=== PATIENT | female | born 1935 | race Caucasian/White ===

== ENCOUNTER → 2017-10-27 | Outpatient (CLI) | payer MEDICARE ==
[~2017-10-27] MED LIST: AMBIEN 10 MG TA10 MG PO; AUGMENTIN 875-1 EACH PO; BACTRIM DS TAB1 EACH PO; BRILINTA90 MG PO; CHANTIX1 MG; COLACE100 MG PO; FISHOIL; HYDROCODON-ACE1 EAC7 PO; HYDROCODONE-AP1 EAC6 PO; IMDUR 30 MG TAB30 M1 PO; JANUVIA25 MG; KLOR-CON 1010 MEQ PO; LASIX 80 MG TAB80 MG PO; LEVAQUIN 500 M500 M2 PO; LIPITOR40 MG PO; LISINOPRIL40 MG PO; LOPRESSOR 12.12.5 MG PO; LOW DOSE ASPIRI81 M1 PO; LUNESTA1 MG; LUNESTA1 MG PO; METFORMIN HCL500 MG PO; MIRALAX17 GM PO; NITROGLYCERIN0.4 MG SL; OMEGA-31000 MG PO; OMEPRAZOLE40 MG PO; PLAVIX 75 MG TA75 M1 PO; PLAVIX 75 MG TA75 MG PO; PRAVACHOL40 MG PO; PREDNISONE 10 M10 MG PO; PRINIVIL5 MG PO; PROAIR HFA8.5 GM INH; PYRIDIUM200 MG PO; SCOPOLAMINE1 EACH TRANSDERM; SYNTHROID112 MC1 PO; TESSALON PERLE100 MG; TYLENOL325 MG PO; VENTOLIN HFA 1818 GM INH; VITAMIN D31000 UNI2 PO
== END ==
LOC: M.RAD 09:21 → M.CT 11:00
DX: R91.1 Solitary pulmonary nodule (principal); J98.4 Other disorders of lung; K76.0 Fatty (change of) liver, not elsewhere classified; K57.30 Diverticulosis of large intestine without perforation or abscess without bleeding; M25.78 Osteophyte, vertebrae; M47.896 Other spondylosis, lumbar region; Z98.890 Other specified postprocedural states; Z90.710 Acquired absence of both cervix and uterus; Z90.722 Acquired absence of ovaries, bilateral

== ENCOUNTER → 2017-12-14 | Outpatient (CLI) | payer MEDICARE ==
[2017-12-14 08:44] LABS: CREATININE 0.9 mg/dL (0.6-1.3)
== END ==
LOC: M.CT 08:13 → M.LAB 08:30 → M.CT 09:30
PROVIDERS: Surgery
DX: I65.21 Occlusion and stenosis of right carotid artery (principal); G45.9 Transient cerebral ischemic attack, unspecified

== ENCOUNTER 2018-02-01 06:52 | Inpatient (IN) | payer MEDICARE ==
[~2018-02-01] VITALS: Ht 157.5 cm; Wt 79.4 kg
[~2018-02-01 06:52] MED LIST changes: -AUGMENTIN 875-1 EACH PO; -COLACE100 MG PO; -HYDROCODONE-AP1 EAC6 PO; -KLOR-CON 1010 MEQ PO; -LASIX 80 MG TAB80 MG PO; -LEVAQUIN 500 M500 M2 PO; -METFORMIN HCL500 MG PO; -PLAVIX 75 MG TA75 M1 PO; -PREDNISONE 10 M10 MG PO; -SCOPOLAMINE1 EACH TRANSDERM; -TYLENOL325 MG PO; -VENTOLIN HFA 1818 GM INH
[2018-02-01 11:34] LABS: ABSOLUTE BASOPHILS 0.1 thou/uL (0.0-0.2); ABSOLUTE EOSINOPHILS 0.2 thou/uL (0.0-0.7); ABSOLUTE LYMPHOCYTES 1.9 thou/uL (0.8-5.3); ABSOLUTE MONOCYTES 0.6 thou/uL (0.0-1.2); ABSOLUTE NEUTROPHILS 4.6 thou/uL (1.6-8.1); BASOPHILS 0.8 %; EOSINOPHILS 2.1 %; HEMATOCRIT 42.6 % (37.0-47.0); HEMOGLOBIN 14.4 gm/dL (12.0-15.0); LYMPHOCYTES 26.3 %; MCH 31.8 pg (26.0-34.0); MCHC 33.8 g/dL (28.0-37.0); MCV 94.2 fL (80.0-100.0); MONOCYTES 8.6 %; MPV 8.5 fl. (7.2-11.1); NUCLEATED RBCS 0 /100WBC; PLATELET COUNT* 202 thou/uL (150-400); POLYS 62.2 %; RBC 4.52 mil/uL (4.20-5.00); RDW-CV 13.1 % (10.5-14.5); WBC 7.3 thou/uL (4.0-11.0)
[2018-02-01 11:46] LABS: CALCIUM 8.5 mg/dL (8.5-10.1); CREATININE 0.7 mg/dL (0.6-1.3); POTASSIUM 4.7 mmol/L (3.5-5.1)
--- NOTE | 2018-02-01 15:53 | EKG ---
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
[2018-02-01 17:30] VITALS: BP 113/48
[2018-02-01 19:00] VITALS: BP 102/42
[2018-02-01 20:00] VITALS: BP 100/43
--- NOTE | 2018-02-01 20:48 | NUR ---
BP TRENDING DOWN, ARTERIAL MAPS 50-55. DR JARQUIN NOTIFIED, ORDERS RECEIVED. FLUID BOLUS INITIATED PER ORDER, TO START RANDA IF BOLUS IS INEFFECTIVE.
[2018-02-01 21:00] VITALS: BP 92/35
[2018-02-01 22:00] VITALS: BP 81/36
[2018-02-01 23:00] VITALS: BP 77/39
[2018-02-02] VITALS (7 sets, daily range): BP systolic 99–119; BP diastolic 35–51
[2018-02-02 05:30] LABS: ABSOLUTE BASOPHILS 0.1 thou/uL (0.0-0.2); ABSOLUTE EOSINOPHILS 0.1 thou/uL (0.0-0.7); ABSOLUTE LYMPHOCYTES 3.1 thou/uL (0.8-5.3); ABSOLUTE MONOCYTES 1.2 thou/uL (0.0-1.2); BASOPHILS 0.9 %; HEMATOCRIT 36.1 % (37.0-47.0); LYMPHOCYTES 24.4 %; MCH 32.1 pg (26.0-34.0); MCHC 33.7 g/dL (28.0-37.0); MCV 95.2 fL (80.0-100.0); MONOCYTES 9.9 %; MPV 8.7 fl. (7.2-11.1); NUCLEATED RBCS 0 /100WBC; PLATELET COUNT* 229 thou/uL (150-400); POLYS 63.8 %; RDW-CV 13.6 % (10.5-14.5); WBC 12.6 thou/uL (4.0-11.0)
[2018-02-02 05:32] LABS: HEMOGLOBIN 12.2 gm/dL (12.0-15.0)
[2018-02-02 05:49] LABS: CALCIUM 7.2 mg/dL (8.5-10.1); CREATININE 0.8 mg/dL (0.6-1.3); POTASSIUM 5.1 mmol/L (3.5-5.1)
--- NOTE | 2018-02-02 07:54 | NUR ---
PT STARTED ON NEOSYNEPHRINE GTT IN THE NIGHT DUE TO LOW BP INTRACTABLE TO FLUID BOLUS. PT WAS TITRATED OFF RANDA GTT AT 0550 AND HAS MAINTAINED MAP >65. PT HAS HAD MINIMAL URINE OUTPUT, BLADDER SCAN REVEALED 44ML POST VOID RESIDUAL. DR CUEVAS ON UNIT AND INFORMED, 1L NS BOLUS GIVEN ORDERED. RIGHT ARTERIAL LINE INTACT. PT HAS BEEN TURNED Q2HR THROUGHOUT THE SHIFT. CALL LIGHT WITHIN REACH.
--- NOTE | 2018-02-02 10:00 | NUR ---
ASSUMED PT CARE 0730. PT A/O X' S 4. C/O OF PAIN DURING SHIFT CHANGE. IV PRN FENTANYL ADMININSTERED BY NIGHT STAFF WITH RELIEF. ART LINE IN PLACE. MAP MAINTAINING > 65. SYSTOLIC BP >100. PT TOLERATING REGULAR DIET. WILL CONTINUE PLAN OF CARE.
--- NOTE | 2018-02-02 12:20 | NUR ---
MET WITH PT AND THEN AGAIN WITH HER FRIEND TO DISCUSS HOME SITUATION/DC PLANNING. PT LIVES WITH HER FRIEND. HAS SUPPORTIVE CHILDREN. 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 PT HAS ORDERS TO DC TODAY. DISCUSSED HH, SHE WOULD LIKE OT HAVE IT FOR SHORT TIME POST DC. DISCUSSED OPTIONS AND CHOSE [facility]. PT PLANS TO GO TO [facility] [place] [address] [place] [address]. CALLED AND FAXED ORDERS TO [facility].
[2018-02-02] MEDS ORDERED: TYLENOL325 MG PO (14:00)
[2018-02-02] MEDS ORDERED: SCOPOLAMINE1 EACH TRANSDERM (14:05)
[2018-02-02] MEDS ORDERED: HYDROCODONE-AP1 EAC6 PO (14:15)
--- NOTE | 2018-02-02 16:34 | NUR ---
PT CONTINUED TO MAINTAIN BP AND MAP. ART LINE DC'D. IV DC'D. DISCHARGE INSTRUCTIONS RECIEVED. PT EDUCATED ON S/S OF INFECTION. PT INSTRUCTED ON POST SURGERY INSTRUCTIONS. PT INSTRUCTED NOT TO DRIVE FOR 1 WEEK, LIFT NOTHING >10LS FOR ONE WEEK. PT EDUCATED ON F/U APPOINTMENTS. ALL BELONGINGS PACKED UP AND LEFT WITH PT. SPOUSE PRESENT DURING DISCHARGE INSTRUCTIONS.
--- NOTE | 2018-02-06 08:58 | OP ---
[facility] [address] [place] [address] OPERATIVE REPORT Name: TYRELL BRUSH Room: [address] IN [facility]#: [id number] Admission: 02/01/18 Attend Phys: Zoila Tomas Discharge: 02/02/18 Date of : 39 Report #: [id number] THIS REPORT FOR: //name// CC: Kelin Teixeira DATE OF SERVICE: 02/01/2018 PREOPERATIVE DIAGNOSIS: Asymptomatic high-grade left carotid artery stenosis. POSTOPERATIVE DIAGNOSIS: Asymptomatic high-grade left carotid artery stenosis. OPERATION: 1. Left carotid endarterectomy with bovine pericardial patch angioplasty. 2. Completion intraoperative duplex. SURGEON: Chavo Teixeira DO ZIPPER MEASURER: None. ANESTHESIA: General. ESTIMATED BLOOD LOSS: 100 mL. FLUIDS: A liter of crystalloid. URINE OUTPUT: None. SPECIMENS: Left carotid plaque. COMPLICATIONS: None. FINDINGS: The patient had about 90% heavily calcified left carotid bulb stenosis. This extended 2 cm up into the left internal carotid artery. This endarterectomized well. Completion duplex demonstrated no intraluminal defects. Good flow in the external carotid artery and continuous diastolic flow through the internal carotid artery. CLINICAL HISTORY: The patient is an 82-year-old woman who was incidentally found to have asymptomatic high-grade left carotid artery stenosis. She was brought in for elective carotid endarterectomy for stroke risk reduction. DETAILS OF PROCEDURE: After informed consent was obtained, the patient was taken to operating room and placed on the OR bed in supine position. She was administered general anesthesia by the anesthesia team. Left neck was prepped and draped in the usual sterile fashion. Full timeout was performed identifying [address] [address] OPERATIVE REPORT Name: GONSALOYAJAIRATYRELL A Room: [address] IN [facility]#: [id number] Admission: 02/01/18 Attend Phys: Zoila Tomas Discharge: 02/02/18 Date of : 39 Report #: [id number] correct patient and procedure. Next, a longitudinal incision was made along the anterior border of the sternocleidomastoid. Dissection was carried down through skin and subcutaneous tissues, both sharply and electrocautery. Platysma was divided. Fascial vein was identified. It was ligated between 2-0 silk ties and divided. The carotid sheath was entered. The jugular vein and vagus nerve were kept in the posterior lateral position. I circumferentially dissected out the left common carotid artery and controlled this with an umbilical tape and Rumel tourniquet. I then dissected out the left superior thyroid and external carotid artery and controlled these with Silastic vessel loops in Smith fashion. I then dissected out the distal internal carotid artery and controlled this with Silastic vessel loop. At this point, I administered 8000 units of intravenous heparin. This allowed to circulate for 3 minutes. I then sequentially clamped internal carotid followed by the external common carotid arteries. I made an arteriotomy and extended with Smith scissors on normal common and internal carotid arteries. I then placed a 12-Urdu Caret shunt in standard fashion. Doppler interrogation confirmed flow through the shunt. I then performed standard endarterectomy with eversion endarterectomy of the external carotid artery. I tailored a good distal endpoint in the internal carotid artery. I freed the artery of all intimal debris. Flushed with heparinized saline. Once satisfied with the endarterectomy, I then completed a patch angioplasty with bovine pericardial patch with running 6-0 Prolene suture. Prior to completion of the suture line, the shunt was removed and the carotid was performed, backbled and sequentially reclamped. I then flushed with heparinized saline, then completed the suture line and then restored flow first up the external carotid artery and after several heartbeats to the internal carotid artery. I then performed a completion intraoperative duplex. This demonstrated no intraluminal defects. Had good flow through the external carotid artery and continuous diastolic flow through the internal carotid artery. At this point, I then partially reversed the heparin with 50 mg of protamine. Once hemostasis was ensured, the wound was irrigated with antibiotic solution and closed the wound in layers with 2-0 and 3-0 Vicryl suture. A 0.25% Marcaine was then injected in the skin and subcutaneous tissues. Skin was closed with 4-0 Monocryl and Dermabond was applied. All sponge, sharp and instrument counts were reported as correct x 2. She tolerated the procedure well and was transferred to recovery room in stable condition, neurologically intact, moving all extremities appropriately. <ELECTRONICALLY SIGNED> By: Chavo Teixeira DO 02/06/18 0858 1627 1711Acaleb Teixeira DO /nt
== END 2018-02-02 16:30 | disposition home or self-care (01) | DRG 38 ==
LOC: M.PRE 06:52 → M.ICU 10:38 → M.TBA 10:38 → M.PRE 11:09 → M.ICU 17:30
PROVIDERS: Surgery; ADMIT Internal Medicine
PROC: 03UL0JZ Supplement Left Internal Carotid Artery with Synthetic Substitute, Open Approach (ICD-10-PCS; principal; 2018-02-01)
PROC: 03CL0ZZ Extirpation of Matter from Left Internal Carotid Artery, Open Approach (ICD-10-PCS; principal; 2018-02-01)
DX: I65.22 Occlusion and stenosis of left carotid artery (principal); R71.0 Precipitous drop in hematocrit; I73.9 Peripheral vascular disease, unspecified; I10 Essential (primary) hypertension; E03.9 Hypothyroidism, unspecified; Z96.1 Presence of intraocular lens; E78.5 Hyperlipidemia, unspecified; F17.210 Nicotine dependence, cigarettes, uncomplicated; K59.00 Constipation, unspecified; J30.9 Allergic rhinitis, unspecified; Z79.899 Other long term (current) drug therapy; Z79.82 Long term (current) use of aspirin; Z90.710 Acquired absence of both cervix and uterus; I25.2 Old myocardial infarction; Z98.61 Coronary angioplasty status

== ENCOUNTER 2018-02-03 19:08 | Inpatient (IN) | payer MEDICARE ==
[~2018-02-03] VITALS: Ht 157.5 cm; Wt 77.6 kg
[~2018-02-03 19:08] MED LIST changes: +HYDROCODONE-AP1 EAC6 PO; +SCOPOLAMINE1 EACH TRANSDERM; +TYLENOL325 MG PO
[2018-02-03 19:23] VITALS: BP 118/68
[2018-02-03 19:54] LABS: ABSOLUTE BASOPHILS 0.1 thou/uL (0.0-0.2); ABSOLUTE EOSINOPHILS 0.2 thou/uL (0.0-0.7); ABSOLUTE LYMPHOCYTES 1.7 thou/uL (0.8-5.3); ABSOLUTE MONOCYTES 0.9 thou/uL (0.0-1.2); ABSOLUTE NEUTROPHILS 5.2 thou/uL (1.6-8.1); BASOPHILS 1.2 %; EOSINOPHILS 2.1 %; HEMATOCRIT 33.3 % (37.0-47.0); HEMOGLOBIN 11.5 gm/dL (12.0-15.0); LYMPHOCYTES 21.3 %; MCH 32.8 pg (26.0-34.0); MCHC 34.4 g/dL (28.0-37.0); MCV 95.3 fL (80.0-100.0); MONOCYTES 10.9 %; MPV 8.7 fl. (7.2-11.1); NUCLEATED RBCS 0 /100WBC; POLYS 64.5 %; RDW-CV 13.6 % (10.5-14.5); WBC 8.1 thou/uL (4.0-11.0)
[2018-02-03 19:56] LABS: PLATELET COUNT* 144 thou/uL (150-400)
[2018-02-03 20:04] LABS: ANION GAP 9 mmol/L (7-16); BUN 13 mg/dL (7-18); CALCIUM 7.8 mg/dL (8.5-10.1); CHLORIDE 102 mmol/L (98-107); CO2 25 mmol/L (21-32); CREATININE 0.8 mg/dL (0.6-1.3); GLUCOSE 264 mg/dL (70-99); POTASSIUM 4.1 mmol/L (3.5-5.1); SODIUM 136 mmol/L (136-145)
[2018-02-03 20:07] LABS: APTT 30.8 Seconds (25.0-31.3)
[2018-02-03 20:14] LABS: ALKALINE PHOSPHATASE 73 U/L (46-116); LIPASE 51 U/L (73-393); MAGNESIUM 1.6 mg/dL (1.8-2.4); NT-PRO BRAIN NAT PEPTIDE 1072 pg/mL (<300); SGOT 19 U/L (15-37); SGPT 25 U/L (30-65); TOTAL BILIRUBIN 0.8 mg/dL (<0.1-1.0); TOTAL PROTEIN 6.4 g/dL (6.4-8.2); TROPONIN-I LEVEL <0.06 ng/mL (<0.06)
[2018-02-04] VITALS (8 sets, daily range): BP systolic 99–115; BP diastolic 43–76
--- NOTE | 2018-02-04 12:07 | EKG ---
[place] [address] ELECTROCARDIOGRAM REPORT Name: TYRELL BRUSH Room: [address] IN [facility]#: [id number] Admission: 02/03/18 Attend Phys: Alex Knutson, Discharge: Date of : 39 Report #: [id number] THIS REPORT FOR: //name// 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 : 1935 Requested By: Stephan Douglas Order Number: [id number] MD: Yuval Tucker Measurements Intervals [place] Rate: 65 P: 33 SC: 135 QRS: 31 QRSD: 76 T: 16 QT: 400 QTc: 416 Interpretive Statements Sinus rhythm Atrial premature complex Borderline T abnormalities, anterior leads Compared to ECG 02/01/2018 11:23:00 Atrial premature complex(es) now present T-wave abnormality now present Electronically Signed On 02-04-2018 12:07:44 CDT by Yuval Tucker [email or web address] <ELECTRONICALLY SIGNED> By: Micky Tucker MD, [facility] 02/04/18 1207 41 41 Micky Tucker MD, [facility] /EPI
[2018-02-05 04:18] VITALS: BP 103/41
[2018-02-05 08:00] VITALS: BP 97/48
[2018-02-05 12:00] VITALS: BP 99/56
--- NOTE | 2018-02-05 13:12 | CON ---
[address] [address] CONSULTATION Name: TYRELL BRUSH Room: [address] IN [facility].#: [id number] Admission: 02/03/18 Attend Phys: Alex Knutson, Discharge: Date of : 39 Report #: [id number] THIS REPORT FOR: //name// CC: KARIE physician/PCP Alex Knutson REQUESTING PHYSICIAN: Dr. Knutson. REASON FOR CONSULTATION: Possible pulmonary embolism. DISCUSSION: The patient is a pleasant 82-year-old woman who has a history of underlying obstructive lung disease, coronary artery disease, peripheral vascular disease. She underwent a left-sided carotid endarterectomy last week on 02/01/2018. She was discharged on 02/02. She presented to the Emergency Department, however, on the evening of 02/03/2018 with complaints of midsternal chest pain and tightness. She has also had intermittent hemoptysis. She was evaluated in the ED. D-dimer was elevated. Chest x-ray was unremarkable. Initial plans were to get a CT angiogram of her chest. However, she could not lay flat. Ventilation perfusion lung scan was done which did show a wedge-shaped defect left upper lobe posteriorly. Ventilation was normal. This was interpreted by the radiologist to be suspicious for PE, but overall was indeterminate probability. She has been kept on IV Lovenox. We were asked to see her. History of COPD is noted. Her last cigarette was last prior to coming in for her carotid endarterectomy. She has a nebulizer at home, and she uses that just p.r.n., maybe, every couple of weeks. She is not on any other inhalers. No oxygen at home. She has smoked up to 2 packs of cigarettes per day in the past, but prior to last week had cut down to at least just a half a pack per day. She has not had hemoptysis previously. She was feeling fairly short of breath, was unable to lie flat. This was a change for her. Not aware of any fevers at home. She is feeling better today. PAST MEDICAL HISTORY: Remarkable for peripheral vascular disease, cerebrovascular disease. The carotid endarterectomy repaired last week. She has coronary artery disease, had had stents placed in the past, with the last one in 2016. She has had prior hysterectomy, left shoulder surgery, diabetes mellitus type 2, hypothyroidism. HOME MEDICATIONS: At the time of admission were levothyroxine, baby aspirin, p.r.n. nitroglycerin, lisinopril, Plavix, pravastatin, MiraLax, scopolamine patch p.r.n. nausea, p.r.n. hydrocodone. ALLERGIES: [place] [address] CONSULTATION Name: TYRELL BRUSH Room: [address] IN [facility]#: [id number] Admission: 02/03/18 Attend Phys: Alex Knutson, Discharge: Date of : 39 Report #: [id number] SOCIAL HISTORY: She is retired. Smoking history as noted above. FAMILY HISTORY: Negative for thromboembolic disease. Negative for heart disease. REVIEW OF SYSTEMS: A 12-point ROS was done. Note positives as above. She has been wheezing more as well. She is not aware of any fevers. Denies any difficulty swallowing. Has had some of the fullness in her neck, but no difficulty swallowing. No vomiting, no diarrhea. Chest pain has resolved. Overall, her breathing is better, but still not back to its baseline. PHYSICAL EXAMINATION: GENERAL APPEARANCE: The patient is a woman who looks her stated age. Currently on room air. She is alert, cooperative. She is in no acute distress. She had no cough or sputum expectorated during my visit. HEENT: Head is normocephalic. Sclerae nonicteric. Mucous membranes are moist. She has a healing left carotid endarterectomy scar on left side. No supraclavicular adenopathy. HEART: Regular rate. No murmur or gallop is appreciated. LUNGS: Reveal breath sounds to be diminished with a prolonged expiratory phase. Does have diffuse scattered expiratory wheezes heard. No crackles or rhonchi heard. Excursion is equal. No CVA tenderness. ABDOMEN: Obese but soft, without appreciable hepatosplenomegaly. There is no guarding or rebound tenderness noted. EXTREMITIES: She has no clubbing. Lower extremities are negative for any significant edema. Turgor is fair. SKIN: Warm and dry. NEUROLOGIC: She is alert and oriented x 3. LABORATORY AND X-RAY FINDING: Chest x-ray and her V/Q scan were reviewed. Findings noted above. She had venous Dopplers done of her lower extremities negative for DVT. Chemistry: BUN is 13, creatinine 0.8, potassium 4.1. ProBNP on admission was almost 1100. Albumin 3.3. Transaminases unremarkable. D-dimer was 1.59. Coag studies otherwise unremarkable. White blood cell count 8100, hemoglobin 11.5, hematocrit of 33.3, platelets 144,000. IMPRESSION: 1. Abnormal V/Q scan. Findings are certainly worrisome for a pulmonary embolism despite having negative venous Dopplers. Given the fairly sudden onset of her symptoms at home as well as the nonmassive hemoptysis, pulmonary embolism does definitely need to be ruled out. 2. Chronic obstructive pulmonary disease, severity unknown. 3. Non-massive hemoptysis. 4. Cerebrovascular disease, status post left carotid endarterectomy. 5. Coronary artery disease, status post stent placement on several occasions. 6. History of hypertension. [address] [address] CONSULTATION Name: TYRELL BRUSH Room: [address] IN [facility].#: [id number] Admission: 02/03/18 Attend Phys: Alex Knutson, Discharge: Date of : 39 Report #: [id number] 7. Obesity. 8. History of tobacco abuse. Last cigarette on 02/01/2018. RECOMMENDATIONS: 1. We will follow up with a CT angiogram of her chest. Discussed with the patient. She does feel like she can lie flat now. This will also allow us to not only assess for presence of PE, but also review her lung godinez. With her smoking history, I do wish to ensure she does not have any worrisome masses. 2. We will continue her neb treatments here on a regular basis. 3. Continue on high dose Lovenox until CT angiogram results are available. 4. Long-term smoking cessation is certainly imperative. <ELECTRONICALLY SIGNED> By: Cadence Cruz MD 02/05/18 1312 1010 [id number] Cruz MD /kenan
[2018-02-05 16:00] VITALS: BP 97/52
[2018-02-05 16:29] LABS: ABSOLUTE EOSINOPHILS 0.2 thou/uL (0.0-0.7); ABSOLUTE LYMPHOCYTES 1.3 thou/uL (0.8-5.3); ABSOLUTE MONOCYTES 0.6 thou/uL (0.0-1.2); ABSOLUTE NEUTROPHILS 4.4 thou/uL (1.6-8.1); BASOPHILS 0.7 %; EOSINOPHILS 2.5 %; HEMATOCRIT 33.3 % (37.0-47.0); HEMOGLOBIN 11.3 gm/dL (12.0-15.0); LYMPHOCYTES 19.7 %; MCH 32.6 pg (26.0-34.0); MCV 95.9 fL (80.0-100.0); MONOCYTES 8.9 %; MPV 8.8 fl. (7.2-11.1); NUCLEATED RBCS 0 /100WBC; PLATELET COUNT* 175 thou/uL (150-400); POLYS 68.2 %; RBC 3.47 mil/uL (4.20-5.00); RDW-CV 13.3 % (10.5-14.5); WBC 6.4 thou/uL (4.0-11.0)
[2018-02-05 16:34] LABS: CALCIUM 8.6 mg/dL (8.5-10.1); CREATININE 0.9 mg/dL (0.6-1.3); POTASSIUM 3.9 mmol/L (3.5-5.1)
[2018-02-05 16:45] LABS: ALBUMIN 2.9 g/dL (3.4-5.0); TOTAL BILIRUBIN 0.8 mg/dL (<0.1-1.0); TOTAL PROTEIN 6.7 g/dL (6.4-8.2)
[2018-02-05 20:00] VITALS: BP 121/59
[2018-02-05 23:25] VITALS: BP 128/63
[2018-02-06 04:28] VITALS: BP 99/46
[2018-02-06 04:56] LABS: HEMATOCRIT 33.8 % (37.0-47.0); HEMOGLOBIN 11.7 gm/dL (12.0-15.0); MCH 32.6 pg (26.0-34.0); MCHC 34.5 g/dL (28.0-37.0); MCV 94.5 fL (80.0-100.0); MPV 9.1 fl. (7.2-11.1); NUCLEATED RBCS 0 /100WBC; PLATELET COUNT* 196 thou/uL (150-400); RBC 3.58 mil/uL (4.20-5.00); RDW-CV 13.4 % (10.5-14.5); WBC 7.3 thou/uL (4.0-11.0)
[2018-02-06 05:09] LABS: CALCIUM 8.8 mg/dL (8.5-10.1); CREATININE 1.2 mg/dL (0.6-1.3); POTASSIUM 4.4 mmol/L (3.5-5.1); TOTAL BILIRUBIN 0.8 mg/dL (<0.1-1.0); TOTAL PROTEIN 6.8 g/dL (6.4-8.2)
[2018-02-06 06:02] LABS: ABSOLUTE LYMPHOCYTES 0.6 thou/uL (0.8-5.3); ABSOLUTE MONOCYTES 0.1 thou/uL (0.0-1.2); ABSOLUTE NEUTROPHILS 6.6 thou/uL (1.6-8.1); PLATELET ESTIMATE ADEQUATE
[2018-02-06 06:03] LABS: ANISOCYTOSIS 1+; POIKILOCYTOSIS 1+
[2018-02-06 07:06] LABS: GLYCOHEMOGLOBIN (HGB A1C) 9.9 % (4.8-5.6)
[2018-02-06 08:26] VITALS: BP 109/49
[2018-02-06 11:30] VITALS: BP 95/43
[2018-02-06 15:26] VITALS: BP 92/37
--- NOTE | 2018-02-06 17:07 | 2DMMODE ---
[place] [address] 2 D/M-MODE ECHOCARDIOGRAM Name: TYRELL BRUSH Room: [address] IN [facility]#: [id number] Admission: 02/03/18 Attend Phys: Alex Sequeira Discharge: Date of : 39 Date of Service: 02/06/18 1707 Report #: [id number] THIS REPORT FOR: //name// APPROVED REPORT Study performed: 02/06/2018 14:33:34 EXAM: Comprehensive 2D, Doppler, and color-flow Echocardiogram Patient Location: In-Patient Room #: [facility] Status: routine BSA: 1.79 HR: 80 bpm BP: 95/43 mmHg Rhythm: NSR Other Information Study Quality: Good Indications Congestive Heart Failure 2D Dimensions LVEF(%): 75.22 (>50%) IVSd: 10.99 (7-11mm) LVOT Diam: 18.73 (18-24mm) LVDd: 41.67 mm PWd: 10.02 (7-11mm) Ascending Ao: 35.43 (22-36mm) LVDs: 23.49 (25-40mm) Aortic Root: 31.71 mm Roach's LVEF: 75.22 % Volumes Left Atrial Volume (Systole) LA ESV Index: 24.40 mL/m2 Aortic Valve AoV Peak Larry.: 1.46 m/s AO Peak Gr.: 8.53 mmHg LVOT Max P.45 mmHg AO Mean Gr.: 4.52 mmHg LVOT Mean P.75 mmHg LVOT Max V: 0.93 m/s AO V2 VTI: 31.65 cm LVOT Mean V: 0.61 m/s EVETTE (VTI): 1.89 cm2 LVOT V1 VTI: 21.65 cm Mitral Valve E/A Ratio: 1.14 [place] [address] 2 D/M-MODE ECHOCARDIOGRAM Name: TYRELL BRUSH Room: [address] IN [facility]#: [id number] Admission: 02/03/18 Attend Phys: Alex Sequeira Discharge: Date of : 39 Date of Service: 02/06/18 1707 Report #: [id number] MV Decel. Time: 169.53 ms MV E Max Larry.: 1.17 m/s MV PHT: 49.16 ms MVA (PHT): 4.47 cm2 TDI E/Lateral E': 10.64 E/Medial E': 10.64 Medial E' Larry.: 0.11 m/s Lateral E' Larry.: 0.11 m/s Pulmonary Valve PV Peak Larry.: 1.02 m/s PV Peak Gr.: 4.19 mmHg Tricuspid Valve TR Peak Gr.: 25.23 mmHg RVSP: 30.00 mmHg Left Ventricle The left ventricle is normal size. There is normal LV segmental wall motion. There is normal left ventricular wall thickness. Left ventricular systolic function is normal. The left ventricular ejection fraction is within the normal range. LVEF is 60-65%. The left ventricular diastolic function is normal. Right Ventricle The right ventricle is normal size. The right ventricular systolic function is normal. Atria The left atrium size is normal. The right atrium size is normal. Aortic Valve Mild aortic valve sclerosis. No aortic regurgitation is present. No hemodynamically significant valvular aortic stenosis. Mitral Valve The mitral valve is normal in structure. Trace mitral regurgitation. No evidence of mitral valve stenosis. Tricuspid Valve The tricuspid valve is normal in structure. Trace to mild tricuspid regurgitation. The RVSP is 30-35 mmHg. Pulmonic Valve The pulmonary valve is normal in structure. [place] [address] 2 D/M-MODE ECHOCARDIOGRAM Name: TYRELL BRUSH Room: [address]#: [id number] Admission: 02/03/18 Attend Phys: Alex Sequeira Discharge: Date of : 39 Date of Service: 02/06/18 1707 Report #: [id number] Great Vessels The aortic root is normal in size. IVC is normal in size and collapses with >50% inspiration Pericardium There is no pericardial effusion. <Conclusion> The left ventricle is normal size. There is normal left ventricular wall thickness. Left ventricular systolic function is normal. The left ventricular ejection fraction is within the normal range. LVEF is 60-65%. The left ventricular diastolic function is normal. The right ventricle is normal size. The left atrium size is normal. Mild aortic valve sclerosis. No aortic regurgitation is present. No hemodynamically significant valvular aortic stenosis. The mitral valve is normal in structure. Trace mitral regurgitation. The tricuspid valve is normal in structure. Trace to mild tricuspid regurgitation. The RVSP is 30-35 mmHg. IVC is normal in size and collapses with >50% inspiration There is no pericardial effusion. There is normal LV segmental wall motion. <ELECTRONICALLY SIGNED> By: Jerrell Montalvo MD, FACC 02/06/18 170 06 06 Jerrell Montalvo MD, FACC /INF
[2018-02-06 20:10] VITALS: BP 109/42
[2018-02-07] VITALS: BP 96/48
[2018-02-07 04:00] VITALS: BP 103/41
[2018-02-07 05:43] LABS: ALBUMIN 3.1 g/dL (3.4-5.0); CALCIUM 8.7 mg/dL (8.5-10.1); CREATININE 1.1 mg/dL (0.6-1.3); POTASSIUM 4.3 mmol/L (3.5-5.1); TOTAL BILIRUBIN 0.5 mg/dL (<0.1-1.0); TOTAL PROTEIN 6.7 g/dL (6.4-8.2)
[2018-02-07 05:52] LABS: ABSOLUTE LYMPHOCYTES 1.1 thou/uL (0.8-5.3); ABSOLUTE MONOCYTES 0.9 thou/uL (0.0-1.2); ABSOLUTE NEUTROPHILS 9.9 thou/uL (1.6-8.1); BASOPHILS 0.1 %; HEMATOCRIT 32.8 % (37.0-47.0); LYMPHOCYTES 9.3 %; MCH 32.1 pg (26.0-34.0); MCHC 33.4 g/dL (28.0-37.0); MONOCYTES 7.3 %; MPV 9.3 fl. (7.2-11.1); NUCLEATED RBCS 0 /100WBC; PLATELET COUNT* 194 thou/uL (150-400); POLYS 83.3 %; RBC 3.41 mil/uL (4.20-5.00); RDW-CV 13.8 % (10.5-14.5); WBC 11.9 thou/uL (4.0-11.0)
[2018-02-07 07:54] VITALS: BP 121/56
[2018-02-07] MEDS ORDERED: AUGMENTIN 875-1 EACH PO (09:19)
[2018-02-07] MEDS ORDERED: VENTOLIN HFA 1818 GM INH (09:19)
[2018-02-07] MEDS ORDERED: PREDNISONE 10 M10 MG PO (09:20)
[2018-02-07] MEDS ORDERED: METFORMIN HCL500 MG PO (09:21)
[2018-02-07 11:00] VITALS: BP 111/45
[2018-02-07 11:16] VITALS: BP 111/45
[2018-02-07 11:43] VITALS: BP 111/45
== END 2018-02-07 12:45 | disposition home health service (06) | DRG 291 ==
LOC: M.ERS 19:08 → M.TBA-ER 22:05 → M.2W 22:05
PROVIDERS: Emergency Medicine Emergency Medical Services; Internal Medicine; ADMIT Family Medicine
DX: I11.0 Hypertensive heart disease with heart failure (principal); J96.01 Acute respiratory failure with hypoxia; J44.0 Chronic obstructive pulmonary disease with (acute) lower respiratory infection; I50.33 Acute on chronic diastolic (congestive) heart failure; E11.51 Type 2 diabetes mellitus with diabetic peripheral angiopathy without gangrene; E11.65 Type 2 diabetes mellitus with hyperglycemia; E03.9 Hypothyroidism, unspecified; J20.9 Acute bronchitis, unspecified; I25.10 Atherosclerotic heart disease of native coronary artery without angina pectoris; I73.9 Peripheral vascular disease, unspecified; E78.5 Hyperlipidemia, unspecified; F17.210 Nicotine dependence, cigarettes, uncomplicated; E66.9 Obesity, unspecified; Z68.31 Body mass index [BMI] 31.0-31.9, adult; I25.2 Old myocardial infarction; Z95.5 Presence of coronary angioplasty implant and graft; Z90.710 Acquired absence of both cervix and uterus; Z79.02 Long term (current) use of antithrombotics/antiplatelets; Z79.82 Long term (current) use of aspirin; Z79.899 Other long term (current) drug therapy

== ENCOUNTER 2018-02-08 04:19 | Inpatient (IN) | payer MEDICARE ==
[~2018-02-08] VITALS: Ht 157.5 cm; Wt 72.8 kg
[~2018-02-08 04:19] MED LIST changes: +AUGMENTIN 875-1 EACH PO; +METFORMIN HCL500 MG PO; +PREDNISONE 10 M10 MG PO; +VENTOLIN HFA 1818 GM INH
[2018-02-08 04:24] VITALS: BP 156/88
[2018-02-08 04:56] LABS: URINE BILIRUBIN NEGATIVE (Negative); URINE BLOOD NEGATIVE (Negative); URINE CLARITY CLEAR; URINE COLOR YELLOW; URINE GLUCOSE-RANDOM NEGATIVE (Negative); URINE KETONES NEGATIVE (Negative); URINE LEUKOCYTES-REFLEX NEGATIVE (Negative); URINE NITRITE-REFLEX NEGATIVE (Negative); URINE PROTEIN NEGATIVE (Negative); URINE SPECIFIC GRAVITY 1.015 (1.005-1.030)
[2018-02-08 05:17] LABS: HEMATOCRIT 34.4 % (37.0-47.0); HEMOGLOBIN 11.8 gm/dL (12.0-15.0); MCH 32.3 pg (26.0-34.0); MCHC 34.4 g/dL (28.0-37.0); MCV 94.1 fL (80.0-100.0); MPV 8.8 fl. (7.2-11.1); NUCLEATED RBCS 0 /100WBC; PLATELET COUNT* 213 thou/uL (150-400); RBC 3.66 mil/uL (4.20-5.00); RDW-CV 13.7 % (10.5-14.5); WBC 8.9 thou/uL (4.0-11.0)
[2018-02-08 05:22] LABS: CALCIUM 8.4 mg/dL (8.5-10.1); CREATININE 0.9 mg/dL (0.6-1.3); POTASSIUM 3.9 mmol/L (3.5-5.1)
[2018-02-08 05:27] LABS: ALBUMIN 3.2 g/dL (3.4-5.0); MAGNESIUM 1.7 mg/dL (1.8-2.4); TOTAL BILIRUBIN 0.6 mg/dL (<0.1-1.0); TOTAL PROTEIN 6.6 g/dL (6.4-8.2)
[2018-02-08 05:36] LABS: BE 1.5 mmol/L (-2 to +3); HCO3 24.2 mmol/L (22.0-26.0); PCO2 32.3 mmHg (35.0-45.0); PO2 74.7 mmHg (75.0-100.0); pH 7.493 (7.340-7.450)
[2018-02-08 05:44] LABS: ABSOLUTE EOSINOPHILS 0.4 thou/uL (0.0-0.7); ABSOLUTE MONOCYTES 0.6 thou/uL (0.0-1.2); ANISOCYTOSIS 1+; PLATELET ESTIMATE ADEQUATE; POIKILOCYTOSIS 1+
[2018-02-08 06:58] LABS: PROTIME 9.7 Seconds (9.20-11.50)
[2018-02-08 07:06] LABS: NT-PRO BRAIN NAT PEPTIDE 1049 pg/mL (<300); TROPONIN-I LEVEL <0.06 ng/mL (<0.06)
--- NOTE | 2018-02-08 08:00 | NUR ---
DAUGHTER-BERNA HAS VOICED CONCERNS THAT HER MOTHER IS TOO SICK TO RETURN HOME AND NEEDS TO BE ADMITTED STATING SHE WANTS TO SPEAK WITH DR MILLER BEFORE ANY DECISION IS MADE. DR MILLER NOTIFIED OF SUCH.
--- NOTE | 2018-02-08 08:38 | NUR ---
DAUGHTER NOW REQUESTING THAT CARDIOLOGY BE CONSULTED SHE WANTS HER MOTHER TO BE EVALUATED DUE TO CHF. DR MILLER NOTIFIED.
[2018-02-08 09:48] VITALS: BP 138/63
[2018-02-08 10:00] VITALS: BP 139/70
--- NOTE | 2018-02-08 10:54 | NUR ---
RECIEVED REPORT FROM STEPHANIE IN ED AND ASSUMED CARE OF PT @ 1000.PT IS A/O X4,VSS,TRACING SR ON MONITOR.LUNG SOUNDS ARE COARSE DIMINSHED WITH WHEEZES.LAST BM WAS YESTERDAY.IV RIGHT HAND PATENT AND SALINE LOCKED.IV LEFT FOREARM PATENT AND SALINE LOCKED.PT IS CALM AND COOPERATIVE WITH NO C/O PAIN AT TIME OF ASSESSMENT.PT IS UP WITH ONE ASSIST TO THE BATHROOM.PT LEFT RESTING N BED WITH CALL LIGHT AND FALL PRECAUTIONS IN PLACE.FAMILY AT BEDSIDE.WILL CONTINUE TO MONITOR.
--- NOTE | 2018-02-08 11:52 | EKG ---
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 Logan : 1935 Requested By: Mouna Cooper Order Number: [id number] MD: Jean Carlos Brooke Measurements Intervals [place] Rate: 60 P: 53 PA: 131 QRS: 19 QRSD: 84 T: 32 QT: 418 QTc: 418 Interpretive Statements Sinus rhythm Compared to ECG 02/03/2018 19:42:36 Atrial premature complex(es) no longer present T-wave abnormality no longer present Electronically Signed On 02-08-2018 11:52:12 CDT by Jean Carlos Brooke [email or web address] <ELECTRONICALLY SIGNED> By: Jean Carlos Brooke MD, FACC 02/08/18 1152 0452 0452 Jean Carlos Brooke MD, [facility] /EPI
[2018-02-08 16:00] VITALS: BP 120/70
--- NOTE | 2018-02-08 16:09 | 2DMMODE ---
[place] [address] 2 D/M-MODE ECHOCARDIOGRAM Name: TYRELL BRUSH Room: [address] IN [facility]#: [id number] Admission: 02/08/18 Attend Phys: Yvette Bojorquez, Discharge: Date of : 39 Date of Service: 02/08/18 1609 Report #: [id number] THIS REPORT FOR: //name// APPROVED REPORT Study performed: 02/08/2018 13:49:48 EXAM: Limited 2D Echocardiogram Patient Location: In-Patient Room #: 210 Status: routine BSA: 1.76 HR: 78 bpm BP: 139/70 mmHg Rhythm: NSR Indications Congestive Heart Failure COPD Tricuspid Valve TR Peak Gr.: 28.66 mmHg Left Ventricle The left ventricle is normal size. There is normal LV segmental wall motion. There is normal left ventricular wall thickness. The left ventricular systolic function is normal. The left ventricular ejection fraction is within the normal range. LVEF is 60-65%. Right Ventricle The right ventricle is normal size. The right ventricular systolic function is normal. Atria The left atrium size is normal. The right atrium size is normal. Aortic Valve Mild aortic valve sclerosis. No aortic regurgitation is present. There is no aortic valvular stenosis. Mitral Valve The mitral valve is normal in structure. Trace mitral regurgitation. No evidence of mitral valve stenosis[place] [address] 2 D/M-MODE ECHOCARDIOGRAM Name: BRUSHTYRELL Room: [address] IN .R.#: [id number] Admission: 02/08/18 Attend Phys: Yvette Bojorquez, Discharge: Date of : 39 Date of Service: 02/08/18 1609 Report #: [id number] The tricuspid valve is normal in structure. Trace tricuspid regurgitation. Great Vessels The aortic root is normal in size. Pericardium There is no pericardial effusion. <Conclusion> LVEF is 60-65%. There is normal LV segmental wall motion. Mild aortic valve sclerosis. There is no aortic valvular stenosis. No aortic regurgitation is present. Trace mitral regurgitation. <ELECTRONICALLY SIGNED> By: Jean Carlos Brooke MD, FACC 02/08/181608 08 08 Jean Carlos Brooke MD, FACC /INF
--- NOTE | 2018-02-08 18:29 | NUR ---
VSS,CARDIAC MONITORING IN PLACE WITH NO CHANGES THIS SHIFT.PT REMAINS ON 2L O2 NC FOR COMFORT.PT PROGRESSING TOWARDS GOALS.RECIEVED MULTIPLE BREATHING TREATMENTS.DENIED PAIN DURING SHIFT.IVS PATENT AND SALINE LOCKED.IV ANTIBIOTICS MANAGED WELL. PT INFORMED OF PLAN OF CARE AND COMMUNICATES UNDERSTANDING.PT UP AD HILDA IN ROOM.HOURLY ROUNDING COMPLETED FOR PT SAFETY.CALL LIGHT WITHIN REACH.WILL CONTINUE TO MONITOR FOR DURATION OF SHIFT.
[2018-02-08 20:00] VITALS: BP 135/69
[2018-02-09] VITALS: BP 107/56
[2018-02-09 00:49] LABS: HEMATOCRIT 37.9 % (37.0-47.0); HEMOGLOBIN 12.7 gm/dL (12.0-15.0); MCH 31.6 pg (26.0-34.0); MCHC 33.5 g/dL (28.0-37.0); MCV 94.3 fL (80.0-100.0); MPV 8.4 fl. (7.2-11.1); RBC 4.02 mil/uL (4.20-5.00); RDW-CV 13.7 % (10.5-14.5); WBC 13.9 thou/uL (4.0-11.0)
[2018-02-09 01:00] LABS: CREATININE 1.3 mg/dL (0.6-1.3); MAGNESIUM 1.7 mg/dL (1.8-2.4); POTASSIUM 3.8 mmol/L (3.5-5.1)
[2018-02-09 04:18] VITALS: BP 107/50
--- NOTE | 2018-02-09 04:38 | NUR ---
PATIENT RESTED IN BED, NO ACUTE CHANGES, PATIENT DID NOT SHOW SIGNS OF DISTRESS. PATIENT BLOOD SUGAR WAS 388 AT TOP OF SHIFT, DOCTOR NOTIFIED, NO NEW ORDERS. BLOOD SUGAR IS WITHIN 160'S. PATIENT DID NOT COMPLAIN OF SOB. FALL PRECAUTIONS IN PLACE, HOURLY ROUNDING OBSERVED.
[2018-02-09 08:00] VITALS: BP 119/60
--- NOTE | 2018-02-09 10:49 | NUR ---
Pt is A&O. Resides at home with a friend. Recently dc from this hospital on 02/07 with [facility], readmitted yesterday for Heart failure, COPD ex. Pt is normally independent. No DME. No hx of SNF. Supportive family and friends. Pt's goal is to return home at dc, resume [facility] HH. Following.
[2018-02-09 12:00] VITALS: BP 119/58
--- NOTE | 2018-02-09 14:22 | NUR ---
O.T. EVAL RECIEVED AND CHART REVIEWED. PT. IS UP AD HILDA IN HER ROOM. PT. DENIES ANY O.T. NEEDS AND HAS BEEN INDEPENDENTLY COMPLETING ADLS IN HER ROOM. O.T. SERVICES ARE NOT INDICATED AT THIS TIME.
[2018-02-09 17:07] VITALS: BP 116/51
--- NOTE | 2018-02-09 19:40 | NUR ---
PATIENT SITTING UP IN BED AND WATCHING TV REMAINS A AND O X 4 NSR RA O2 SAT MID 90S DESILVERIZER COUGH GOOD APPETITE LAST BM T-3 UP AD HILDA IV 20 GA R H SL NO C/O PAIN TODAY ACCUCHECKS 344/388/277 CALL LIGHT IN REACH AND INSTRUCTION GIVEN AND FOLLOWED CARD AND PULM CONS SEEN
[2018-02-09 20:00] VITALS: BP 121/47
[2018-02-10] VITALS (7 sets, daily range): BP systolic 91–152; BP diastolic 40–73
[2018-02-10 04:50] LABS: HEMATOCRIT 34.8 % (37.0-47.0); MCH 31.9 pg (26.0-34.0); MCHC 34.4 g/dL (28.0-37.0); MCV 92.7 fL (80.0-100.0); MPV 8.4 fl. (7.2-11.1); RBC 3.76 mil/uL (4.20-5.00); RDW-CV 13.6 % (10.5-14.5); WBC 16.6 thou/uL (4.0-11.0)
--- NOTE | 2018-02-10 04:52 | NUR ---
PATIENT RESTED IN BED, NO ACUTE CHANGES. PATIENT DID NOT SHOW SIGNS OF DISTRESS. THE GOAL IS TO INCREASE RESPIRATORY STRENGTH. FALL PRECAUTIONS IN PLACE, BED ALARM ON.
[2018-02-10 05:29] LABS: ALBUMIN 3.2 g/dL (3.4-5.0); CALCIUM 8.5 mg/dL (8.5-10.1); CREATININE 1.1 mg/dL (0.6-1.3); MAGNESIUM 1.9 mg/dL (1.8-2.4); POTASSIUM 3.9 mmol/L (3.5-5.1); TOTAL BILIRUBIN 0.4 mg/dL (<0.1-1.0); TOTAL PROTEIN 6.4 g/dL (6.4-8.2)
--- NOTE | 2018-02-10 16:28 | NUR ---
PT PROGRESSING TOWARDS GOALS THIS SHIFT. VSS. CONTINUES ON RA WITH SATS WNL. OK TO DC WITH CARDIOLOGY AND PULMONOLOGY. PT HAS NO C/O PAIN. FAMILY AT BEDSIDE THIS SHIFT. NO CONCERNS AT THIS TIME. CLWR. WCTM.
[2018-02-11 04:00] VITALS: BP 118/54
--- NOTE | 2018-02-11 05:43 | NUR ---
PATIENT RESTED IN BED, NO ACUTE CHANGES. PATIENT DID NOT SHOW SIGNS OF DISTRESS. FALL PRECAUTIONS IN PLACE, CALL LIGHT WITHIN REACH.
--- NOTE | 2018-02-11 05:52 | NUR ---
CALL TO DOCTOR FULBRIGHT REGARDING PATIENT'S REQUEST FOR STOOL SOFTNER, DOCTOR ORDER COLACE, 100MG, DAILY.
[2018-02-11 08:00] VITALS: BP 111/54
[2018-02-11 11:21] VITALS: BP 125/59
[2018-02-11 16:20] VITALS: BP 123/69
[2018-02-11 20:00] VITALS: BP 135/61
[2018-02-11 23:47] VITALS: BP 113/55
--- NOTE | 2018-02-12 03:53 | NUR ---
PATIENT DID NOT HAVE A BOWEL MOVEMENT RECENTLY, PATIENT REQUEST FOR MED FOR BOWEL MOVEMENT, DOCTOR ESCOBAR NOTIFIED, SEE ORDERS.
[2018-02-12 04:14] VITALS: BP 141/66
[2018-02-12 05:05] LABS: HEMATOCRIT 42.9 % (37.0-47.0); MCH 32.4 pg (26.0-34.0); MCHC 34.1 g/dL (28.0-37.0); MPV 8.1 fl. (7.2-11.1); RBC 4.51 mil/uL (4.20-5.00); RDW-CV 13.9 % (10.5-14.5)
[2018-02-12 05:29] LABS: ALBUMIN 3.7 g/dL (3.4-5.0); CALCIUM 9.1 mg/dL (8.5-10.1); CREATININE 1.1 mg/dL (0.6-1.3); MAGNESIUM 2.2 mg/dL (1.8-2.4); POTASSIUM 3.4 mmol/L (3.5-5.1); TOTAL BILIRUBIN 0.6 mg/dL (<0.1-1.0); TOTAL PROTEIN 7.4 g/dL (6.4-8.2)
--- NOTE | 2018-02-12 05:29 | NUR ---
PATIENT RESTED IN BED, NO ACUTE CHANGES. PATIENT COMPLAINS THAT SHE IS UNABLE TO HAVE BOWEL MOVEMENT. PATIENT DID NOT SHOW SIGNS OF DISTRESS. FALL PRECAUTIONS IN PLACE, BED ALARM.
[2018-02-12 05:54] LABS: HEMOGLOBIN 14.6 gm/dL (12.0-15.0)
--- NOTE | 2018-02-12 07:27 | CON ---
[address] [address] CONSULTATION Name: TYRELL BRUSH Room: [address] IN [facility].#: [id number] Admission: 02/08/18 Attend Phys: Yvette Bojorquez MD Discharge: Date of : 39 Report #: [id number] THIS REPORT FOR: //name// CC: Kelin Bojorquez DATE OF SERVICE: 02/09/2018 REQUESTING PHYSICIAN: Dr. Brooke. REASON FOR CONSULTATION: Shortness of breath, readmission. DISCUSSION: The patient is a very pleasant 82-year-old woman who had recent carotid endarterectomy on 02/01/2018. This was on the left side. She was discharged home on the , but required readmission day after that with marked shortness of breath, sound to be bronchospastic, appeared to be volume overloaded. She was readmitted. She was diuresed, was also placed on bronchodilator therapy. Subsequently, able to obtain a CT angiogram of her chest, which was negative for pulmonary emboli. She also had venous Dopplers done of her lower extremities, which were negative also for DVT. She improved. She was subsequently discharged on 02/07/2018. Was treated for bronchitis, did not appear to have any pneumonia. She was weaned back to room air at that time she was discharged. Apparently, the night of the when she was home, she notes she was getting have a "wet cough." She is coughing up small amounts of white mucus. Not aware of any fevers. Her family members also note that she was starting to look more short of breath and having more issues. She does have a nebulizer at home, but she did not use it. Did use her albuterol inhaler, which did not provide her with any benefit. She then re-presented to the Emergency Department early yesterday morning and was seen in the ED. Initial blood gas was actually done on room air, which revealed adequate oxygenation. Was admitted. She has already been seen by the engineer systems. She had a followup echocardiogram done, which continues to show preserved LV function. Followup CT angiogram done of her chest was also negative again for pulmonary embolism. Overnight, she has now been on IV steroids, had been receiving neb treatments every 4 hours. When seen this morning, she does note she is feeling better. Still having some cough. Denies any choking with p.o. intake. She denies any smoking since just prior to her carotid surgery, which was done at the beginning of the month as noted. When she was seen last admission, also had some intermittent transient hemoptysis with some of her sputum, but not had any since. She has a long history of significant tobacco abuse, was up to 2 packs of cigarettes per day in the past, so she has cut down to half a pack a day prior to her surgery and again she has not had a cigarette since earlier this month. She has a nebulizer at home, but she was just using that occasionally. She has not used it since she was discharged. She and her family note, however, that even up until her surgery, she had not been having trouble with shortness of breath. Would not have much cough. Her daughters note that she is usually a [address] [place] [address] CONSULTATION Name: TYRELL BRUSH Room: [address] IN [facility].R.#: [id number] Admission: 02/08/18 Attend Phys: Yvette Bojorquez MD Discharge: Date of : 39 Report #: [id number] "go-getter," and could not keep her down. Has been a change for her. She admits to being compliant with her regimens at home, otherwise. She is in her home, has no pets at home. No remodeling work is being done. PAST MEDICAL HISTORY: Besides her recent carotid artery surgery, is remarkable for coronary artery disease. Had stents placed in the past. She does continue to follow with engineer systems. She has had prior hysterectomy; left shoulder surgery; diabetes mellitus type 2, which has not been well controlled recently; hypothyroidism. MEDICATIONS: At the time of admission, she was using at home Augmentin, albuterol inhaler, prednisone taper, metformin, Plavix, pravastatin, p.r.n. hydrocodone, levothyroxine, p.r.n. nitroglycerin, aspirin, p.r.n. MiraLax, p.r.n. acetaminophen, scopolamine p.r.n., and lisinopril. CURRENT MEDICATIONS: At this time are metformin, insulin sliding scale, methylprednisolone 62.5 mg IV every 12 hours, magnesium and potassium replacement protocols, lisinopril, aspirin, levothyroxine, Protonix, atorvastatin, Lovenox for DVT prophylaxis, Lasix 40 mg IV b.i.d., Plavix, levofloxacin, p.r.n. scopolamine patch, p.r.n. hydrocodone. SOCIAL HISTORY: Former smoker as noted. She is retired. FAMILY HISTORY: Negative for heart disease and thromboembolic disease. REVIEW OF SYSTEMS: A 12-point ROS was done. Note positives above. Her sputum has been white. No further hemoptysis. She does complain of chest pain, but actually points to her left lateral chest wall. It is worse with coughing and taking in a deep breath. Denies any difficulty swallowing. Appetite has been just fair. Did have some "dry heaves." Had some intermittent nausea. She tends towards constipation. Has noted some lower extremity edema. PHYSICAL EXAMINATION: GENERAL APPEARANCE: A woman who looks her stated age. Two daughters at the bedside. She is resting in bed on room air. She is alert, conversant, and is in no acute distress. HEENT: Head is normocephalic. Sclerae nonicteric. Mucous membranes look moist. NECK: Negative for adenopathy. She does have a healing left carotid endarterectomy scar noted. Does not appear to have excessive fullness. No supraclavicular adenopathy. No stridor is heard. HEART: Regular rate and rhythm with occasional extrasystole. No S3 is heard. LUNGS: Reveal only minimal decrease in her breath sounds. She does have a few faint crackles heard in the bases. No wheezing is heard. Slight prolongation of expiratory phase. Excursion is equal. ABDOMEN: Obese, but soft without hepatosplenomegaly. [place] [address] CONSULTATION Name: TYRELL BRUSH Room: [address] IN [facility]#: [id number] Admission: 02/08/18 Attend Phys: Yvette Bojorquez MD Discharge: Date of : 39 Report #: [id number] rebound tenderness. She has some trace pretibial edema. SKIN: Warm and dry. NEUROLOGIC: She is alert and oriented x 3. Moving all extremities well. Affect is normal. LABORATORY AND X-RAY FINDINGS: Chest x-ray done yesterday, which was a portable study, was clear of infiltrates. No abnormalities are noted. CT angiogram was also done of her chest yesterday. Small pleural effusion she had previously are improved. Left has resolved. Does have thickening of her gallbladder wall. Echocardiogram done yesterday revealed a normal EF at 60-65%. RV was also normal. No significant valvular disease is noted. Arterial blood gases done yesterday on room air, she had a pH of 7.49, pCO2 of 32, pO2 of 75, bicarbonate of 24 with saturation 94%. On her chemistry, potassium this morning 3.8, BUN 29, creatinine of 1.3, bicarb 31, glucose 334. Transaminases normal. Magnesium 1.7. Albumin 3.2. ProBNP yesterday was just over 1000. Coags studies unremarkable. White blood cell count 13,900, hemoglobin 12.7, hematocrit 37.9, platelets are normal. UA done yesterday was unremarkable. IMPRESSION: 1. Status post acute respiratory distress. Has improved. Exact etiology is not clear. She probably has some underlying chronic obstructive pulmonary disease, though severity is unknown. By history, she was physically quite active prior to her carotid artery surgery, which would certainly argue against severe chronic obstructive pulmonary disease. Does not appear to have any active infection. LV function remains preserved. She has had 2 CT angiograms done within this past week. No evidence of pulmonary embolism. Given the ongoing issues, she may have more diastolic dysfunction and retaining fluid than what is appreciated with her current echocardiogram. May have some difficulty trying to mobilize additional fluid that she did require after initial carotid surgery. 2. History of tobacco abuse. No cigarette since earlier this month. 3. Known coronary artery disease status post stent placement. Recent echocardiogram, however, showed preserved LV function without any wall motion abnormalities. 4. Diabetes mellitus, poor control. Exacerbated by the steroids. 4. History of hypothyroidism. RECOMMENDATIONS: 1. Agree with continued diuresis following renal function. 2. We will also obtain a swallow study. 3. We will check bedside spirometry. <ELECTRONICALLY SIGNED> By: Cadence Cruz MD 02/12/18 0727 1004 2125MD tyler Nickerson
[2018-02-12 11:30] VITALS: BP 125/59
[2018-02-12] MEDS ORDERED: LEVAQUIN 500 M500 M2 PO (12:22)
[2018-02-12] MEDS ORDERED: PREDNISONE 10 M10 MG PO (12:22)
[2018-02-12] MEDS ORDERED: KLOR-CON 1010 MEQ PO (14:56)
[2018-02-12] MEDS ORDERED: LASIX 80 MG TAB80 MG PO (14:56)
[2018-02-12 14:59] VITALS: BP 125/59
--- NOTE | 2018-02-12 16:30 | NUR ---
ORDER RECEIVED TO DISCHARGE PATIENT HMOE TO SELF CARE WITH . MED REC, MEDICATION EDUCATION, STROKE EDUCATION, AND NEED FOR FOLLOW UP APPOINTMENTS COVERED AND STATED UNDERSTOOD BY PATIENT. IV AND TELEMETRY PACK REMOVED AND PAITNET CHOSE TO AMBULATE TO AWAITING CAR WITH SPOUSE PRESENT. PATINET IN NOAPPARENT DISTRESS AT TIME OF DISCHARGE. DISCHARGE TIME OF 16:30.
--- NOTE | 2018-02-22 08:10 | CON ---
[address] [address] CONSULTATION Name: TYRELL BRUSH Room: [address] IN [facility].#: [id number] Admission: 02/08/18 Attend Phys: Yvette Bojorquez MD Discharge: 02/12/18 Date of : 39 Report #: [id number] THIS REPORT FOR: //name// CC: Kelin Bojorquez DATE OF SERVICE: 02/08/2018 PRIMARY MACHINE COIL ASSEMBLER: Woody Farris MD [facility] PRIMARY CARE PHYSICIAN: KATYA Layne CHIEF COMPLAINT: Shortness of breath, weight gain, cough. HISTORY OF PRESENT ILLNESS: The patient is an 82-year-old female who underwent a successful left-sided carotid endarterectomy yesterday and had presented 2 times to the hospital since then with respiratory insufficiency, cough, fluid overload and COPD exacerbation and diastolic heart failure. Her blood pressures have remained relatively stable. Apparently, she was hypotensive postoperatively. She had not yet seen our office in followup before being rehospitalized. She had been compliant with her medications, though. She denies chest pain or pressure, except when coughs she gets a sharp central chest pain. Her ECG on presentation, denies any acute ST segment abnormalities. She is back on her Plavix. She denies orthopnea or PND, but has dyspnea with any exertion and had been up about 2-3 kilos from a preoperative weight. PAST MEDICAL HISTORY: She has a history of coronary artery disease, status post PCI in June 2017 to her left anterior descending coronary after having already had a stent placed in that coronary artery remotely. She has a chronically occluded right coronary artery and a known 50-70% stenosis in an obtuse marginal vessel and preserved LV function. She had a left-sided carotid endarterectomy for severe carotid stenosis, left-sided. She has no documented history of stroke or TIA. She has a residual 50% stenosis on the right side. She is an active smoker. She has a history of asymptomatic bradycardia. She has COPD. 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 She is also a type 2 diabetic. PAST SURGICAL HISTORY: Carotid endarterectomy, coronary intervention, partial hysterectomy, shoulder surgery, bladder surgery. FAMILY HISTORY: Positive for diabetes, [place] [address] CONSULTATION Name: TYRELL BRUSH [place] Room: [address]#: [id number] Admission: 02/08/18 Attend Phys: Yvette Bojorquez MD Discharge: 02/12/18 Date of : 39 Report #: [id number] SOCIAL HISTORY: Every day smoker for more than 20 years. HOME MEDICATIONS: Aspirin, Plavix, Елена, Synthroid, Prinivil 5 mg daily. She has been receiving Lasix 40 mg IV b.i.d. in the hospital and pravastatin 40 mg. REVIEW OF SYSTEMS: PULMONARY: Positive shortness of breath, positive cough, positive dyspnea with exertion. No PND. CARDIOVASCULAR: No chest pain with exertion. Positive chest pain with cough and orthopnea, positive PND, positive edema. NEUROLOGIC: Denies headaches, blurry vision, slurred speech, numbness. No seizures. THROAT: Denies any dysphagia. EYES: Negative blurred vision or loss of vision. HEMATOLOGIC: No anemia. RENAL: No history of kidney failure. SKIN: No rashes. GENERAL: No fevers or chills. ALLERGIES: Denies any contrast allergies. PHYSICAL EXAMINATION: VITAL SIGNS: Blood pressure today is 138/63, pulse is 76 in sinus rhythm. O2 sat is 95% on 2 liters. GENERAL: Pleasant, moderately obese elderly female. She is alert, oriented, no apparent distress. NECK: There is a left-sided carotid scar which has well-healed. No evidence of erythema or swelling. CARDIOVASCULAR: Regular. Heart tones are distant. I cannot hear a rub or gallop. LUNGS: Diminished breath sounds bilaterally. ABDOMEN: Soft, nontender, nondistended. EXTREMITIES: No peripheral edema. LABORATORY DATA: Electrocardiogram shows a sinus bradycardia, normal ST segments. Her hemoglobin is 11.8, white blood cell count is 8.9. Sodium is 139, potassium is 3.9, BUN is 20, creatinine is 0.9. A1c is 9.9. Lactic acid is 2.0. NT-proBNP is 1049. IMAGING: CTA of the chest demonstrated no CT evidence of pulmonary vascular embolus, pleural effusions, gallbladder thickening. Chest x-ray is normal. IMPRESSION: 1. Acute diastolic congestive heart failure. I would continue with IV Lasix and she will likely need to be discharged. [place] [address] CONSULTATION Name: TYRELL BRUSH Room: [address] IN [facility]#: [id number] Admission: 02/08/18 Attend Phys: Yvette Bojorquez MD Discharge: 02/12/18 Date of : 39 Report #: [id number] aggressive volume resuscitations in the patient's immobility postoperatively. She has a history of preserved left ventricular function based on prior testing. We will order a limited echocardiogram to make sure there has not been decline postoperatively. 2. Coronary artery disease. Her symptoms seem less likely to be angina. I would continue with aspirin and Plavix, this does not seem to be an ACS presentation. 3. Chronic obstructive pulmonary disease exacerbation. We will consult our pulmonary colleagues. 4. Tobacco abuse. Cessation is strongly recommended. 5. Status post successful carotid endarterectomy. She seems to be doing well postoperatively in this regard. <ELECTRONICALLY SIGNED> By: Woody Farris MD, FACC 02/22/18 0810 1111 1912Jean Carlos Brooke MD, FACC /nt
== END 2018-02-12 15:30 | disposition home or self-care (01) | DRG 291 ==
LOC: M.ERS 04:19 → M.2W 08:49 → M.TBA-ER 08:49 → M.2W 10:20
PROVIDERS: Family Medicine; Personal Emergency Response Attendant; ADMIT Internal Medicine
DX: I50.31 Acute diastolic (congestive) heart failure (principal); J96.20 Acute and chronic respiratory failure, unspecified whether with hypoxia or hypercapnia; J44.1 Chronic obstructive pulmonary disease with (acute) exacerbation; R65.10 Systemic inflammatory response syndrome (SIRS) of non-infectious origin without acute organ dysfunction; I11.0 Hypertensive heart disease with heart failure; E03.9 Hypothyroidism, unspecified; E78.5 Hyperlipidemia, unspecified; F17.210 Nicotine dependence, cigarettes, uncomplicated; I25.10 Atherosclerotic heart disease of native coronary artery without angina pectoris; E11.9 Type 2 diabetes mellitus without complications; E66.9 Obesity, unspecified; Z95.5 Presence of coronary angioplasty implant and graft; Z68.29 Body mass index [BMI] 29.0-29.9, adult; I25.2 Old myocardial infarction; Z71.6 Tobacco abuse counseling; Z90.710 Acquired absence of both cervix and uterus; Z79.02 Long term (current) use of antithrombotics/antiplatelets; Z79.82 Long term (current) use of aspirin; Z79.899 Other long term (current) drug therapy; Z83.3 Family history of diabetes mellitus; Z82.49 Family history of ischemic heart disease and other diseases of the circulatory system

== ENCOUNTER 2018-02-16 10:01 | Inpatient (IN) | payer MEDICARE ==
[~2018-02-16] VITALS: Ht 152.4 cm; Wt 72.4 kg
[~2018-02-16 10:01] MED LIST changes: +KLOR-CON 1010 MEQ PO; +LASIX 80 MG TAB80 MG PO; +LEVAQUIN 500 M500 M2 PO
[2018-02-16 10:07] VITALS: BP 153/85
[2018-02-16 10:35] LABS: HEMATOCRIT 50.5 % (37.0-47.0); HEMOGLOBIN 17.2 gm/dL (12.0-15.0); MPV 8.1 fl. (7.2-11.1); NUCLEATED RBCS 0 /100WBC; PLATELET COUNT* 403 thou/uL (150-400); RBC 5.37 mil/uL (4.20-5.00); RDW-CV 13.5 % (10.5-14.5); WBC 24.2 thou/uL (4.0-11.0)
[2018-02-16 10:43] LABS: ANION GAP 10 mmol/L (7-16); BUN 33 mg/dL (7-18); CALCIUM 9.8 mg/dL (8.5-10.1); CHLORIDE 94 mmol/L (98-107); CO2 27 mmol/L (21-32); CREATININE 1.2 mg/dL (0.6-1.3); GLUCOSE 251 mg/dL (70-99); SODIUM 131 mmol/L (136-145)
[2018-02-16 10:44] LABS: APTT 29.2 Seconds (25.0-31.3); PROTIME 9.7 Seconds (9.20-11.50)
[2018-02-16 10:53] LABS: ALBUMIN 4.2 g/dL (3.4-5.0); ALKALINE PHOSPHATASE 117 U/L (46-116); LIPASE 82 U/L (73-393); MAGNESIUM 1.8 mg/dL (1.8-2.4); NT-PRO BRAIN NAT PEPTIDE 87 pg/mL (<300); SGOT 23 U/L (15-37); SGPT 65 U/L (30-65); TOTAL BILIRUBIN 0.7 mg/dL (<0.1-1.0); TOTAL PROTEIN 8.5 g/dL (6.4-8.2); TROPONIN-I LEVEL <0.06 ng/mL (<0.06)
[2018-02-16 10:56] LABS: ABSOLUTE LYMPHOCYTES 3.6 thou/uL (0.8-5.3); ABSOLUTE NEUTROPHILS 19.6 thou/uL (1.6-8.1); PLATELET ESTIMATE ADEQUATE
--- NOTE | 2018-02-16 16:52 | EKG ---
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 : 1935 Requested By: Stephan Douglas Order Number: [id number] Reading MD: Woody Farris Measurements Intervals [place] Rate: 108 P: 71 NC: 119 QRS: 38 QRSD: 73 T: 146 QT: 301 QTc: 404 Interpretive Statements Sinus tachycardia Probable left atrial enlargement Repol abnrm, severe global ischemia (LM/MVD) Compared to ECG 02/08/2018 04:52:38 Sinus rhythm no longer present Electronically Signed On 02-16-2018 16:52:31 CDT by Woody Farris [email or web address] <ELECTRONICALLY SIGNED> By: Woody Farris MD, [facility] 02/16/18 1652 1013 1013 Woody Farris MD, [facility] /EPI
--- NOTE | 2018-02-16 16:54 | EKG ---
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: : 1935 Requested By: Stephan Douglas Order Number: [id number] MD: Woody Farris Measurements Intervals [place] Rate: 85 P: 51 MT: 123 QRS: 11 QRSD: 77 T: 69 QT: 413 QTc: 492 Interpretive Statements Sinus rhythm Probable left atrial enlargement Borderline repolarization abnormality Borderline prolonged QT interval Compared to ECG 02/08/2018 04:52:38 rate slowed Electronically Signed On 02-16-2018 16:54:02 CDT by Woody Farris [email or web address] <ELECTRONICALLY SIGNED> By: Woody Farris MD, [facility] 02/16/18 1654 1350 1350 Woody Farris MD, FAC /EPI
[2018-02-16 17:40] VITALS: BP 127/54
[2018-02-16 17:55] VITALS: BP 130/63
[2018-02-16] MEDS ORDERED: MIRALAX17 GM PO (18:27)
[2018-02-16] MEDS ORDERED: COLACE100 MG PO (18:28)
[2018-02-16 20:47] VITALS: BP 106/45
[2018-02-17 00:01] VITALS: BP 108/69; BP 148/87
[2018-02-17 04:00] VITALS: BP 102/54
[2018-02-17 05:08] LABS: HEMATOCRIT 41.7 % (37.0-47.0); MCH 31.5 pg (26.0-34.0); MCHC 33.5 g/dL (28.0-37.0); MCV 94.1 fL (80.0-100.0); MPV 8.1 fl. (7.2-11.1); RBC 4.43 mil/uL (4.20-5.00); RDW-CV 13.5 % (10.5-14.5); WBC 16.4 thou/uL (4.0-11.0)
[2018-02-17 06:22] LABS: CALCIUM 8.7 mg/dL (8.5-10.1); MAGNESIUM 1.8 mg/dL (1.8-2.4); POTASSIUM 4.2 mmol/L (3.5-5.1)
[2018-02-17 08:05] VITALS: BP 107/53
[2018-02-17 09:54] VITALS: BP 107/53
--- NOTE | 2018-02-17 11:38 | EKG ---
[place] [address] ELECTROCARDIOGRAM REPORT Name: TYRELL BRUSH Room: [address] IN 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
[2018-02-17 12:04] VITALS: BP 119/60
[2018-02-17 17:02] LABS: ALBUMIN 3.3 g/dL (3.4-5.0); DIRECT BILIRUBIN 0.2 mg/dL (<0.1-0.3); TOTAL BILIRUBIN 0.6 mg/dL (<0.1-1.0); TOTAL PROTEIN 5.9 g/dL (6.4-8.2)
[2018-02-17 20:58] VITALS: BP 114/59
[2018-02-18 00:15] VITALS: BP 115/66
[2018-02-18 04:00] VITALS: BP 156/60
[2018-02-18 05:05] LABS: HEMATOCRIT 39.4 % (37.0-47.0); HEMOGLOBIN 13.4 gm/dL (12.0-15.0); MCH 31.7 pg (26.0-34.0); MCHC 33.9 g/dL (28.0-37.0); MCV 93.4 fL (80.0-100.0); MPV 8.2 fl. (7.2-11.1); RBC 4.22 mil/uL (4.20-5.00); RDW-CV 13.4 % (10.5-14.5); WBC 13.2 thou/uL (4.0-11.0)
[2018-02-18 05:39] LABS: CALCIUM 8.2 mg/dL (8.5-10.1); CREATININE 0.8 mg/dL (0.6-1.3); MAGNESIUM 1.7 mg/dL (1.8-2.4); POTASSIUM 4.2 mmol/L (3.5-5.1)
[2018-02-18 08:15] VITALS: BP 103/48
[2018-02-18] MEDS ORDERED: PLAVIX 75 MG TA75 M1 PO (12:12)
[2018-02-18] MEDS ORDERED: LEVAQUIN 500 M500 M2 PO (12:13)
[2018-02-18] MEDS ORDERED: COLACE100 MG PO (12:14)
[2018-02-18 12:15] VITALS: BP 121/68
--- NOTE | 2018-02-19 18:03 | CON ---
[address] [address] CONSULTATION Name: TYRELL BRUSH Room: [address] IN [facility]#: [id number] Admission: 02/16/18 Attend Phys: Alex Knutson, Discharge: 02/18/18 Date of : 39 Report #: [id number] THIS REPORT FOR: //name// CC: Kelin Knutson DATE OF SERVICE: 02/16/2018 HISTORY OF PRESENT ILLNESS: The patient is an 82-year-old single white female who I was asked to see in the hospital today after she had nausea and vomiting. The patient is not very active at this time. She has been a smoker for years. She had a previous stent placed in her LAD by Dr. May back in 2011. In June, she had been to [place] and I placed another stent in her LAD. The right coronary artery is chronically occluded. She was placed on Plavix and has done well since that time. She has a carotid stenosis and recently saw Dr. Teixeira who recommended carotid endarterectomy. She was admitted to [place] on 02/01/2018 and underwent left carotid endarterectomy by Dr. Teixeira. Her postoperative course was uncomplicated. She was discharged after a couple of days. However, she was admitted 24 hours later with shortness of breath and fluid overload. She was diuresed and sent home. She went home for a day, but again was readmitted 24 hours later with shortness of breath. She was placed on steroids, antibiotics, and she has a nebulizer at home. She states she has now been home about a week. She has been nauseated from all the pills she is taking. She denies any bleeding anywhere. She has had no chest pain, increased shortness of breath. Last night, however, she became diaphoretic and she felt weak. Today, she took all her pills and then had bloating and nausea. She vomited at home once. She had a routine followup with my nurse practitioner, Dulce Mccain. When she came to see Dulce, she felt bloated and nauseated in the office. She was taken to the bathroom and vomited. She was brought over to the Emergency Room for further evaluation and treatment. She notes some bloating, but denies abdominal pain, difficulty voiding. PAST MEDICAL HISTORY: Significant for previous hysterectomy. She has had a bladder tuck, shoulder surgery. She has hypertension, hyperlipidemia and glucose intolerance. CURRENT MEDICATIONS: Her current medications that she was sent home on recently included aspirin, Plavix, Елена, Synthroid, Prinivil, Pravachol, Lasix, potassium, metformin. She previously was on Januvia. ALLERGIES: She has no known drug allergies. FAMILY HISTORY: [place] [address] CONSULTATION Name: TYRELL BRUSH Room: [address]#: [id number] Admission: 02/16/18 Attend Phys: Alex Knutson, Discharge: 02/18/18 Date of : 39 Report #: [id number] SOCIAL HISTORY: She is , currently lives with a male friend in [place], [place]. She recently quit smoking. No alcohol abuse. REVIEW OF SYSTEMS: She has had no history of stroke. She has a chronic cough. No history of liver disease, kidney disease, cancer, psychiatric illness, chronic skin condition. PHYSICAL EXAMINATION: GENERAL: Revealed an elderly female who appeared in mild abdominal distress. VITAL SIGNS: Blood pressure is 130/78, pulse is 90. She is afebrile. HEENT: She was anicteric, conjunctiva pink. Mucous membranes moist. NECK: Veins not distended. No carotid bruits. CHEST: Clear to auscultation. CARDIOVASCULAR: Regular rate and rhythm without rub. ABDOMEN: Soft, nontender. Hypoactive bowel sounds were noted. EXTREMITIES: Had no edema. Dorsalis pedis pulse 2+ bilaterally. SKIN: Warm, dry. NEUROLOGIC: Nonfocal. LABORATORY DATA: ECG showed sinus rhythm, nonspecific ST-segment changes. Workup in the Emergency Room today, she had portable chest x-ray that showed normal heart size, clear lung godinez. Workup in the Emergency Room today, sodium 131, creatinine 1.2, glucose 251. Lipase is 82. Her liver function studies showed alkaline phosphatase 117, SGOT is normal. Troponin 0.06. Her white blood cell count 24,000, hemoglobin 17.2. She actually had urinalysis done on 02/08/2018 that was negative for protein, glucose and ketones. IMPRESSION AND RECOMMENDATIONS: 1. Abdominal discomfort and vomiting. Possible related to multiple medications. No evidence of acute abdomen. Recommend admission and observation. 2. Recent left carotid endarterectomy. 3. Coronary artery disease. Stents 6 months ago. No history of chest pain. I will continue aspirin and Plavix. 4. Chronic bronchitis. 5. Chronic obstructive pulmonary disease. 6. Hypertension. The patient is on an AIMEE inhibitor. 7. Hyperlipidemia. The patient has been on a statin drug. <ELECTRONICALLY SIGNED> By: Woody Farris MD, [facility] 02/19/18 1803 1251 2042Djess Farris MD, FACC /nt
== END 2018-02-18 12:30 | disposition home or self-care (01) | DRG 391 ==
LOC: M.ERS 10:01 → M.TBA-ER 11:24 → M.2W 17:54
PROVIDERS: Emergency Medicine Emergency Medical Services; ADMIT Family Medicine
DX: K30 Functional dyspepsia (principal); J96.01 Acute respiratory failure with hypoxia; R65.11 Systemic inflammatory response syndrome (SIRS) of non-infectious origin with acute organ dysfunction; I24.9 Acute ischemic heart disease, unspecified; I50.32 Chronic diastolic (congestive) heart failure; T39.395A Adverse effect of other nonsteroidal anti-inflammatory drugs [NSAID], initial encounter; R11.2 Nausea with vomiting, unspecified; E78.5 Hyperlipidemia, unspecified; I25.10 Atherosclerotic heart disease of native coronary artery without angina pectoris; J42 Unspecified chronic bronchitis; K81.1 Chronic cholecystitis; I11.0 Hypertensive heart disease with heart failure; D72.829 Elevated white blood cell count, unspecified; E03.9 Hypothyroidism, unspecified; Z96.1 Presence of intraocular lens; Z79.82 Long term (current) use of aspirin; Z90.710 Acquired absence of both cervix and uterus; Z82.49 Family history of ischemic heart disease and other diseases of the circulatory system; Z95.5 Presence of coronary angioplasty implant and graft; I25.2 Old myocardial infarction; Z87.891 Personal history of nicotine dependence; Z79.899 Other long term (current) drug therapy

== ENCOUNTER 2018-11-28 11:42 | Emergency (ER) | payer MEDICARE ==
[~2018-11-28] VITALS: Ht 160 cm; Wt 70.3 kg
[~2018-11-28 11:42] MED LIST changes: +COLACE100 MG PO; +PLAVIX 75 MG TA75 M1 PO; +SYNTHROID100 MC1 PO; -SYNTHROID112 MC1 PO
[2018-11-28 12:59] LABS: URINE BILIRUBIN NEGATIVE (Negative); URINE BLOOD NEGATIVE (Negative); URINE CLARITY CLEAR; URINE COLOR YELLOW; URINE GLUCOSE-RANDOM NEGATIVE (Negative); URINE KETONES NEGATIVE (Negative); URINE LEUKOCYTES-REFLEX NEGATIVE (Negative); URINE NITRITE-REFLEX NEGATIVE (Negative); URINE PROTEIN NEGATIVE (Negative); URINE UROBILINOGEN 0.2 E.U./dl (0.2-1.0)
[2018-11-28] MEDS ORDERED: ROBAXIN 750 MG750 M1 PO (13:00)
[2018-11-28] MEDS ORDERED: EC-NAPROSYN500 M1 PO (13:02)
[2018-11-28 13:23] VITALS: BP 144/72
== END 2018-11-28 13:23 | disposition home or self-care (01) ==
LOC: M.ERS 11:42
PROVIDERS: Nurse Practitioner Family
DX: M54.5 Low back pain (principal); F17.210 Nicotine dependence, cigarettes, uncomplicated; I10 Essential (primary) hypertension; E03.9 Hypothyroidism, unspecified; J44.9 Chronic obstructive pulmonary disease, unspecified; E78.5 Hyperlipidemia, unspecified; Z90.710 Acquired absence of both cervix and uterus; Z96.611 Presence of right artificial shoulder joint; Z95.5 Presence of coronary angioplasty implant and graft

== ENCOUNTER → 2019-07-05 | Outpatient (CLI) | payer MEDICARE ==
[~2019-07-05] MED LIST changes: +EC-NAPROSYN500 M1 PO; +ROBAXIN 750 MG750 M1 PO
== END ==
LOC: M.CT 12:40
DX: J43.9 Emphysema, unspecified (principal); J84.10 Pulmonary fibrosis, unspecified; R91.8 Other nonspecific abnormal finding of lung field; I70.0 Atherosclerosis of aorta; I25.10 Atherosclerotic heart disease of native coronary artery without angina pectoris; I65.22 Occlusion and stenosis of left carotid artery; R04.2 Hemoptysis

== ENCOUNTER → 2019-08-15 | Outpatient (CLI) | payer MEDICARE ==
[2019-08-15 12:07] LABS: CREATININE 0.9 mg/dL (0.6-1.3)
== END ==
LOC: M.LAB 11:30 → M.CT 13:00
PROVIDERS: Nurse Practitioner Family
DX: N20.0 Calculus of kidney (principal); K57.30 Diverticulosis of large intestine without perforation or abscess without bleeding; N81.10 Cystocele, unspecified; I25.10 Atherosclerotic heart disease of native coronary artery without angina pectoris

== ENCOUNTER → 2020-03-03 | Outpatient (CLI) | payer MEDICARE | LOC: M.CT 12:00 | DX: R91.8 Other nonspecific abnormal finding of lung field (principal); K76.0 Fatty (change of) liver, not elsewhere classified ==

== ENCOUNTER → 2020-10-13 | Outpatient (CLI) | payer MEDICARE | LOC: M.CT 12:55 | PROVIDERS: ATTEND Nurse Practitioner Family | DX: J32.9 Chronic sinusitis, unspecified (principal) ==

== ENCOUNTER 2021-01-13 19:07 | Emergency (ER) | payer MEDICARE ==
[~2021-01-13] VITALS: Ht 160 cm; Wt 72.6 kg
[2021-01-13 21:40] LABS: ABSOLUTE BASOPHILS 0.1 thou/uL (0.0-0.2); ABSOLUTE EOSINOPHILS 0.2 thou/uL (0.0-0.7); ABSOLUTE LYMPHOCYTES 2.3 thou/uL (0.8-5.3); ABSOLUTE MONOCYTES 0.8 thou/uL (0.0-1.2); ABSOLUTE NEUTROPHILS 4.8 thou/uL (1.6-8.1); BASOPHILS 0.9 %; EOSINOPHILS 2.3 %; HEMATOCRIT 35.5 % (37.0-47.0); LYMPHOCYTES 28.7 %; MCH 31.2 pg (26.0-34.0); MCHC 33.9 g/dL (28.0-37.0); MONOCYTES 9.5 %; MPV 8.1 fl. (7.2-11.1); NUCLEATED RBCS 0 /100WBC; PLATELET COUNT* 231 thou/uL (150-400); POLYS 58.6 %; RBC 3.86 mil/uL (4.20-5.00); RDW-CV 13.8 % (10.5-14.5); WBC 8.1 thou/uL (4.0-11.0)
[2021-01-13 21:47] LABS: CALCIUM 9.2 mg/dL (8.5-10.1); CREATININE 0.8 mg/dL (0.6-1.3); POTASSIUM 4.1 mmol/L (3.5-5.1)
[2021-01-13 21:56] LABS: ALBUMIN 3.4 g/dL (3.4-5.0); TOTAL BILIRUBIN 0.4 mg/dL (<0.1-1.0); URIC ACID* 4.9 mg/dL (2.6-7.2)
[2021-01-13] MEDS ORDERED: PREDNISONE 20 M20 MG PO (22:59)
[2021-01-13] MEDS ORDERED: NORCO5 PO (22:59)
[2021-01-13 23:12] VITALS: BP 124/57
== END 2021-01-13 23:14 | disposition home or self-care (01) ==
LOC: M.ERS 19:07
PROVIDERS: Personal Emergency Response Attendant
DX: M79.671 Pain in right foot (principal); M79.674 Pain in right toe(s); M79.89 Other specified soft tissue disorders; I10 Essential (primary) hypertension; E03.9 Hypothyroidism, unspecified; I25.2 Old myocardial infarction; E78.5 Hyperlipidemia, unspecified; J44.9 Chronic obstructive pulmonary disease, unspecified; E11.9 Type 2 diabetes mellitus without complications; F17.210 Nicotine dependence, cigarettes, uncomplicated; Z90.711 Acquired absence of uterus with remaining cervical stump; Z96.612 Presence of left artificial shoulder joint; Z95.5 Presence of coronary angioplasty implant and graft; Z79.899 Other long term (current) drug therapy

== ENCOUNTER 2021-01-29 08:10 | Inpatient (IN) | payer MEDICARE ==
[~2021-01-29] VITALS: Ht 160 cm; Wt 72.6 kg
[~2021-01-29 08:10] MED LIST changes: +NORCO5 PO; +PREDNISONE 20 M20 MG PO
[2021-01-29 08:11] VITALS: BP 142/83
[2021-01-29 08:37] LABS: URINE BILIRUBIN NEGATIVE (Negative); URINE BLOOD TRACE (Negative); URINE CLARITY CLEAR; URINE COLOR YELLOW; URINE GLUCOSE-RANDOM 2+ (Negative); URINE KETONES 1+ (Negative); URINE LEUKOCYTES-REFLEX NEGATIVE (Negative); URINE NITRITE-REFLEX NEGATIVE (Negative); URINE PROTEIN TRACE (Negative); URINE SPECIFIC GRAVITY >= 1.030 (1.005-1.030); URINE UROBILINOGEN 0.2 E.U./dl (0.2-1.0)
[2021-01-29 08:54] LABS: HEMATOCRIT 43.6 % (37.0-47.0); HEMOGLOBIN 14.3 gm/dL (12.0-15.0); MCH 30.1 pg (26.0-34.0); MCHC 32.8 g/dL (28.0-37.0); MCV 91.9 fL (80.0-100.0); MPV 8.1 fl. (7.2-11.1); NUCLEATED RBCS 0 /100WBC; PLATELET COUNT* 282 thou/uL (150-400); RBC 4.74 mil/uL (4.20-5.00); RDW-CV 13.8 % (10.5-14.5); WBC 15.8 thou/uL (4.0-11.0)
[2021-01-29 09:02] LABS: CALCIUM 8.5 mg/dL (8.5-10.1); CREATININE 0.9 mg/dL (0.6-1.3); POTASSIUM 4.1 mmol/L (3.5-5.1)
[2021-01-29 09:07] LABS: ALBUMIN 3.9 g/dL (3.4-5.0); TOTAL BILIRUBIN 0.8 mg/dL (<0.1-1.0); TOTAL PROTEIN 8.1 g/dL (6.4-8.2)
[2021-01-29 09:26] LABS: ABSOLUTE LYMPHOCYTES 0.5 thou/uL (0.8-5.3); ABSOLUTE MONOCYTES 0.2 thou/uL (0.0-1.2); ABSOLUTE NEUTROPHILS 15.2 thou/uL (1.6-8.1); PLATELET ESTIMATE ADEQUATE
[2021-01-29 14:50] VITALS: BP 125/57
--- NOTE | 2021-01-29 14:52 | EKG ---
[place] [address] ELECTROCARDIOGRAM REPORT Name: TYRELL BRUSH Room: [place] [address] ADM IN [facility]#: [id number] Admission: 01/29/21 Attend Phys: Elaine Mckeon MD Discharge: Date of : 39 Date of Service: 01/29/21 0817 Report #: [id number] THIS REPORT FOR: //name// [facility] ED Test Date: 2021-01-29 Test Time: 08:17:22 Pat Name: TYRELL BRUSH Department: Room: [facility] Gender: F Officer Lieutenant: JAKI : 1935 Requested By: Stephan Douglas Order Number: [id number] MD: Woody Farris Measurements Intervals [place] Rate: 115 P: [place]: QRS: 56 QRSD: 67 T: 239 QT: 371 QTc: 513 Interpretive Statements sinus tachycardia Nonspecific repol abnormality, diffuse leads Prolonged QT interval Compared to ECG 02/17/2018 09:05:00 Prolonged QT interval now present Sinus rhythm no longer present Electronically Signed On 01-29-2021 14:52:41 CDT by Woody Farris [email or web address] <ELECTRONICALLY SIGNED> By: Woody Farris MD, [facility] 01/29/21 1452 6 6 Woody Farris MD, [facility] /EPI
[2021-01-29 15:15] VITALS: BP 123/59
--- NOTE | 2021-01-29 19:42 | NUR ---
PATIENT ARRIVED TO UNIT FROM ER VIA BED AT APPROX. 1500. PATIENT IS A&OX4, PLEASANT AND COOPERATIVE WITH CARES. PATIENT STATES SHE WEARS GLASSES HOWEVER LEFT THEM AT HOME AND HAS UPPER DENTURES THAT ARE LOCATED IN HER PURSE (WHICH DAUGHTER, BERNA LATER TOOK TO KEEP WHILE PATIENT IS HERE). PATIENT DOES NOT USE ANY ASSISTIVE DEVICES AT HOME AND IS UP X1 ASSIST. MEDICATIONS ADMINISTERED ORDERED WITH EXCEPTION OF ROBAXIN WHICH WAS NOT AVAILABLE AT TIME DUE (NOTIFIED NIGHTSHIFT NURSE). CALL LIGHT AND FREQUENTLY USED ITEMS WITHIN REACH.
[2021-01-29 20:00] VITALS: BP 111/58
[2021-01-29] MEDS ORDERED: ALBUTEROL2.5 MG/31 INH (20:25)
[2021-01-30 05:32] LABS: HEMATOCRIT 32.6 % (37.0-47.0); MCH 31.2 pg (26.0-34.0); MCV 91.8 fL (80.0-100.0); MPV 7.7 fl. (7.2-11.1); RBC 3.55 mil/uL (4.20-5.00); RDW-CV 13.8 % (10.5-14.5); WBC 4.9 thou/uL (4.0-11.0)
[2021-01-30 05:51] LABS: HEMOGLOBIN 11.1 gm/dL (12.0-15.0)
[2021-01-30 05:53] LABS: CALCIUM 7.2 mg/dL (8.5-10.1); CREATININE 0.9 mg/dL (0.6-1.3); POTASSIUM 3.4 mmol/L (3.5-5.1)
[2021-01-30 08:50] VITALS: BP 107/50
[2021-01-30 16:25] VITALS: BP 108/55
--- NOTE | 2021-01-30 18:29 | NUR ---
PATIENT ALERT AND ORIENTED X 4. VITAL SIGNS STABLE ON 2L O2 NASAL CANULA. UP WITH STAND BY ASSIST TO THE BATHROOM. IV PATENT AND SALINE LOCKED. ANTIBIOTICS GIVEN PER MAR. DENIES PAIN AND NAUSEA AT THIS TIME. FALL PRECAUTIONS IN PLACE AND BED ALARM ON. HOURLY ROUNDS MAINTAINED THROUGHOUT THE SHIFT. CALL LIGHT WITHIN REACH.
[2021-01-30 20:00] VITALS: BP 133/58
--- NOTE | 2021-01-31 04:44 | NUR ---
PT A&O. VSS ON RA. MEDS GIVEN ORDERED. C/O CRAMPING ABD PAIN AND DIARRHEA. PT HAD LIQUIDY BM X 6-7 TIMES THIS SHIFT. STOOL SAMPLE SENT. NORCO GIVEN FOR PAIN. UP TO BSC INDEPENDENTLY. DENIED NAUSEA. CALL LIGHT WITHIN REACH. WILL CONTINUE TO MONITOR.
[2021-01-31 05:12] LABS: MCH 31.1 pg (26.0-34.0); MCHC 33.2 g/dL (28.0-37.0); MCV 93.6 fL (80.0-100.0); MPV 7.8 fl. (7.2-11.1); RBC 3.53 mil/uL (4.20-5.00); WBC 5.6 thou/uL (4.0-11.0)
[2021-01-31 05:15] LABS: CALCIUM 7.5 mg/dL (8.5-10.1); CREATININE 0.7 mg/dL (0.6-1.3); POTASSIUM 3.3 mmol/L (3.5-5.1)
[2021-01-31 08:20] VITALS: BP 125/47
[2021-01-31] MEDS ORDERED: IMODIUM A-D2 MG PO (14:22)
[2021-01-31 14:45] VITALS: BP 125/47
--- NOTE | 2021-01-31 15:24 | NUR ---
PT A&OX4 VSS. PT DENIES NAUSEA. PT REPORTS FEWER BOWEL MOVEMENTS THIS SHIFT AND BM BEING MORE FORMED. PT REMAINS ON ROOM AIR, SAT 96%. PT ACCUCHECKS, NO INSULIN INDICATED THIS SHIFT PRIOR TO DISCHARGE. PT UP AD HILDA, GAIT STEADY. PT REMAINS CONTINENT OF B/B. IV TO RAC DC'D PRIOR TO LEAVING UNIT. PT AND CHILDREN STATE UNDERSTANDING OF DC INSTRUCTIONS RND RX INFORMATION PROVIDED. PT DRESSED INDEPENDENTLY. PT LEFT UNIT WITH ALL PERSONAL BELONGINGS.
[2021-01-31 15:34] VITALS: BP 125/47
== END 2021-01-31 15:20 | disposition home or self-care (01) | DRG 872 ==
LOC: M.ERS 08:10 → M.ORTHSURG 10:48 → M.TBA-ER 10:48 → M.ORTHSURG 14:58
PROVIDERS: Emergency Medicine Emergency Medical Services; ADMIT Family Medicine; ATTEND Family Medicine
DX: A41.9 Sepsis, unspecified organism (principal); A04.9 Bacterial intestinal infection, unspecified; I10 Essential (primary) hypertension; E03.9 Hypothyroidism, unspecified; J44.9 Chronic obstructive pulmonary disease, unspecified; E11.9 Type 2 diabetes mellitus without complications; F17.210 Nicotine dependence, cigarettes, uncomplicated; E78.5 Hyperlipidemia, unspecified; E87.6 Hypokalemia; Z96.612 Presence of left artificial shoulder joint; Z96.1 Presence of intraocular lens; Z20.822 Contact with and (suspected) exposure to COVID-19; Z90.710 Acquired absence of both cervix and uterus; I25.2 Old myocardial infarction; Z95.5 Presence of coronary angioplasty implant and graft; Z79.01 Long term (current) use of anticoagulants; Z79.899 Other long term (current) drug therapy

== ENCOUNTER 2021-04-16 09:58 | Emergency (ER) | payer MEDICARE ==
[~2021-04-16] VITALS: Ht 160 cm; Wt 70.3 kg
[~2021-04-16 09:58] MED LIST changes: +ALBUTEROL2.5 MG/31 INH; +IMODIUM A-D2 MG PO
[2021-04-16 11:34] VITALS: BP 128/61
== END 2021-04-16 11:35 | disposition home or self-care (01) ==
LOC: M.ERS 09:58
DX: S90.31XA Contusion of right foot, initial encounter (principal); I10 Essential (primary) hypertension; E03.9 Hypothyroidism, unspecified; E78.5 Hyperlipidemia, unspecified; J44.9 Chronic obstructive pulmonary disease, unspecified; E11.9 Type 2 diabetes mellitus without complications; F17.210 Nicotine dependence, cigarettes, uncomplicated; Z79.899 Other long term (current) drug therapy; Z90.710 Acquired absence of both cervix and uterus; W01.198A Fall on same level from slipping, tripping and stumbling with subsequent striking against other object, initial encounter; Y93.89 Activity, other specified; Y92.89 Other specified places as the place of occurrence of the external cause; Y99.8 Other external cause status